=== PATIENT | male | born 1955 | race Caucasian/White ===

== ENCOUNTER 2024-10-28 17:27 | Emergency (ER) | payer OTHER, SELFPAY ==
[2024-10-28 17:39] VITALS: BP 159/98; PULSE 86; RESP 15; TEMP 36.5; O2SAT 93
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
[2024-10-28] MEDS: ACETAMINOPHEN 1,000 MG/100 ML BAG 400 MG IVPB (19:18)
[2024-10-28 19:21] LABS: Abs Immature Grans 0.15 10^3/uL (0.0-0.06); Absolute Basophil Count 0.09 10^3/uL (0.0-0.2); Absolute Eosinophil Count 0.05 10^3/uL (0.0-0.7); Absolute Lymphocyte Count 1.05 10^3/uL (1.2-3.4); Absolute Neutrophil Count 12.94 10^3/uL (1.2-6.7); Basophils % 0.6 %; Eosinophils % 0.3 %; HCT 45.8 % (40.0-50.0); HGB 15.1 g/dL (13.5-17.5); Lymphocytes % 6.8 %; MCH 29.4 pg (27.0-33.0); MCV 89 fL (80-95); MPV 9.1 fL (8.0-11.0); Monocytes % 7.3 %; Platelet Count 248 10^3/uL (130-400); RBC 5.13 10^6/uL (4.36-5.78); RDW 13.2 % (11.8-14.1); RDW-SD 43.1 fL; WBC 15.41 10^3/uL (4.4-10.8)
[2024-10-28 19:22] LABS: Absolute Monocyte Count 1.12 10^3/uL (0.1-0.8)
[2024-10-28 19:35] LABS: ALT 39 U/L (16-63); AST 36 U/L (15-37); Alkaline Phosphatase 58 U/L (46-116); Anion Gap 7.4 mmol/L (3-11); BUN 28 mg/dL (7-18); Bilirubin, Total 0.33 mg/dL (0.2-1.0); CO2 29.6 mmol/L (21.0-32.0); CREATININE 1.2 mg/dL (0.70-1.30); Calcium 9.8 mg/dL (8.5-10.1); Chloride 107 mmol/L (98-107); Creatine Kinase 901 U/L (39-308); Estimated GFR 66.28 (mL/min/1.73m2); Glucose 144 mg/dL (74-106); Sodium 144 mmol/L (136-145)
[2024-10-28] MEDS: Omnipaque 350 MG/ML 100 ML BTL IJ ×2 (19:41→19:44)
[2024-10-28] MEDS: Normal Saline - Diluent 50 ML VIAL IJ (19:42)
[2024-10-28] MEDS: fentaNYL 100 MCG/2 ML VIAL 50 MCG IVP ×2 (20:00→21:18)
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
[2024-10-28 21:08] VITALS: BP 147/87; PULSE 93; RESP 14; O2SAT 97
[2024-10-28 22:25] LABS: Bilirubin Negative (Negative); Blood Negative (Negative); Clarity Clear (Clear); Glucose Negative (Negative); Ketones 40 mg/dL (Negative); Leukocyte Esterase Negative (Negative); Nitrite Negative (Negative); Specific Gravity 1.015 (1.005-1.025); Urobilinogen 0.2 mg/dL (Up to 0.2)
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
[2024-10-29 00:03] VITALS: BP 127/80; PULSE 83; TEMP 36.9; O2SAT 98
[2024-10-29] MEDS: fentaNYL 100 MCG/2 ML VIAL 50 MCG IVP (00:18)
== END 2024-10-29 00:25 | disposition short-term general hospital (02) ==
PROVIDERS: Nurse Practitioner Family; Emergency Provider Emergency Medicine Emergency Medical Services
DX: S12.191A Other nondisplaced fracture of second cervical vertebra, initial encounter for closed fracture (principal); S70.12XA Contusion of left thigh, initial encounter; V86.52XA Driver of snowmobile injured in nontraffic accident, initial encounter; Y93.29 Activity, other involving ice and snow; Y92.838 Other recreation area as the place of occurrence of the external cause
CPT/HCPCS: 00123; 74177; 75635; 80053; 82550; 96365; 96375; 96376; 99285; 70450; 71260; 72125; 73080; 81003; 85025; J0131; J3010; J3490